=== PATIENT | male | born 1965 ===

== ENCOUNTER → 2024-04-01 00:07 | Outpatient (CLI) | payer MEDICAID, SELFPAY ==
--- NOTE | 2024-04-01 10:30 | DI.CTLCSR_ITS ---
Exam(s) CT CHEST LUNG CANCER SCREEN EXAM: CT CHEST LUNG CANCER SCREEN CLINICAL HISTORY: F17.210 Nicotine dependence TECHNIQUE: Imaging Protocol: Axial computed tomography images with coronal and sagittal reformatted images were created and reviewed. Low dose screening protocol. COMPARISON: No exams were available for comparison FINDINGS: Tracheobronchial tree: No bronchiectasis or mucus plugging. Mediastinum and Lisette: No dominant adenopathy or fluid collection. Pulmonary parenchyma: No consolidation or dominant measurable mass. Minimal emphysematous changes. Lung Nodules: Multiple bilateral scattered calcified granulomas. Noncalcified nodules. Pleura: No effusion. No pneumothorax. Heart: The heart is not dilated. No coronary artery calcifications are seen. Aorta: Thoracic aorta non-dilated. Upper abdomen: Unremarkable. Bones: Unremarkable for age. Soft Tissues: Unremarkable. IMPRESSION: No suspicious pulmonary nodules. Lung RADS Cat 1 - Negative: No nodules and definitely benign nodules Lung-RADS 1.0 CATEGORIES: Category 0 - Prior chest CT exam(s) being located for comparison. Category 1 - Annual screening in 12 months. No nodules or definitely benign nodules. Category 2 - Annual screening in 12 months. Benign appearance. Nodules with low likelihood of becomin g active cancer. Category 3 - 6-month follow-up. Probably benign. Short-term follow-up suggested. Nodules with low lik elihood of becoming active cancer. Category 4A - 3-month follow-up and CT/PET if >8 mm in size. Suspicious finding. Findings which requi re additional testing. Category 4B - Findings which require additional testing and tissue sampling. Category 4X - Category 3 or 4 nodules with additional features or imaging findings that increases the suspicion of malignancy. Modifier S- Potentially clinically significant findings (non lung cancer) RADIATION DOSE DELIVERED: 78.53mGy.cm Total DLP DATA REPOSITORY: All CT scans at this facility are submitted to the National Radiology Data Registry (NRDR) Dose Index Registry (DIR) with the [employer] ([employer]). RADIATION OPTIMIZATION: All CT scans at this facility use at least one of these dose optimization te chniques: automated exposure control; mA and/or kV adjustment per patient size (includes targeted exa ms where dose is matched to clinical indication); or iterative reconstruction.
== END ==
PROVIDERS: Visit Provider Nurse Practitioner Family
DX: Z12.2 Encounter for screening for malignant neoplasm of respiratory organs (principal); F17.210 Nicotine dependence, cigarettes, uncomplicated
CPT/HCPCS: 71271